=== PATIENT | male | born 1965 | race Caucasian/White ===

== ENCOUNTER 2016-08-30 03:48 | Emergency (ER) | payer SELFPAY ==
[~2016-08-30] VITALS: Ht 170.2 cm; Wt 71.2 kg
[~2016-08-30 03:48] MED LIST: NOVOLIN N100 UNITS/ SUBQ; ZOCOR20 MG PO
--- NOTE | 2016-08-30 03:48 | NUR ---
BIBA BLS TO ER BED 3
--- NOTE | 2016-08-30 03:48 | NUR ---
Patient being evaluated by physician at bedside.
[2016-08-30 03:53] VITALS: BP 172/97
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
--- NOTE | 2016-08-30 04:05 | NUR ---
Patient being evaluated by physician at bedside.
--- NOTE | 2016-08-30 05:01 | NUR ---
[place] [employer] AT BEDSIDE.
--- NOTE | 2016-08-30 05:09 | NUR ---
PATIENT BIB [employer]. PATIENT EXAMINED BY DR. THOMSON. PATIENT MEDICALLY CLEARED AND RELEASED IN CUSTODY IN STABLE CONDITION. ORIGINAL PRE-BOOK FORM GIVEN TO OFFICER NOAM.
[2016-08-30 05:10] VITALS: BP 132/84
== END 2016-08-30 05:09 ==
LOC: MED 03:48
DX: S01.81XA Laceration without foreign body of other part of head, initial encounter (principal); E11.9 Type 2 diabetes mellitus without complications; F10.10 Alcohol abuse, uncomplicated; Y08.89XA Assault by other specified means, initial encounter; Y93.89 Activity, other specified; Y92.009 Unspecified place in unspecified non-institutional (private) residence as the place of occurrence of the external cause; Y99.8 Other external cause status